=== PATIENT | male | born 1965 | race Caucasian/White ===

== ENCOUNTER 2018-06-08 02:09 | Emergency (ER) | payer OTHER ==
[~2018-06-08] VITALS: Ht 175.3 cm; Wt 78.0 kg
[2018-06-08 02:20] VITALS: BP 145/90
--- NOTE | 2018-06-08 02:20 | NUR ---
ED Nurse Note: Pt arrived ED from home, c/o left Elbow pain 11/24 without injury today. Pt is A/O X 4. Vital signs stable at this time, waiting for orders.
[2018-06-08] MEDS ORDERED: CRESTOR40 MG ORAL (02:21)
[2018-06-08] MEDS ORDERED: ENALAPRIL1.25 MG/ML IV (02:21)
[2018-06-08] MEDS ORDERED: PLAVIX75 MG ORAL (02:21)
[2018-06-08] MEDS ORDERED: CITALOPRAM HBR10 M1 ORAL (02:21)
[2018-06-08] MEDS ORDERED: HYDROcodone/Acetamin 5/325 tab ORAL ONE (02:30)
[2018-06-08] MEDS ORDERED: Bactrim-DS 1 tab ORAL ONE (02:30)
[2018-06-08] MEDS ORDERED: DOXYCYCLINE MO100 MG ORAL (02:33)
[2018-06-08] MEDS ORDERED: IBUPROFEN600 MG ORAL (02:33)
[2018-06-08] MEDS ORDERED: HYDROCODON-ACE1 EA15 ORAL (02:33)
--- NOTE | 2018-06-08 02:33 | Emergency Room Report ---
History of Present Illness General Chief Complaint: Upper Extremity Injury Source: Patient Present Illness [facility] This is a 52-year-old male with no past medical history. He presents with left elbow pain. No trauma. Onset tonight. Woke up around midnight with pain. There is some swelling and warmth to the left elbow area. Pain is 7 out of 10. Worse with movement. No injury. No fever chills. Allergies: Coded Allergies: No Known Allergies (Unverified , 06/08/18) Patient History Past Medical History: see triage record, old chart reviewed Past Surgical History: none Pertinent Family History: none Social History: Denies: smoking Immunizations: other Reviewed Nursing Documentation: PMH: Agreed; PSxH: Agreed Nursing Documentation-PMH Past Medical History: No History, Except For Hx Hypertension: Yes Review of Systems Eye: Denies: eye pain, blurred vision ENT: Denies: ear pain, nose congestion, throat swelling Respiratory: Denies: cough, shortness of breath Cardiovascular: Denies: chest pain, palpitations Gastrointestinal: Denies: abdominal pain, diarrhea, nausea, vomiting Musculoskeletal: Reports: joint pain; Denies: back pain Skin: Denies: rash Neurological: Denies: headache, numbness Endocrine: Denies: increased thirst, increased urine Hematologic/Lymphatic: Denies: easy bruising All Other Systems: negative except mentioned in HPI Physical Exam Vital Signs Date Time Temp Pulse Resp B/P (MAP) Pulse Ox O2 Delivery O2 Flow Rate FiO2 06/08/18 02:15 98.4 71 14 151/96 94 Room Air vitals with high blood pressure Sp02 EP Interpretation: reviewed, normal General Appearance: well appearing, no apparent distress, alert Head: normocephalic, atraumatic Eyes: bilateral eye PERRL, bilateral eye EOMI ENT: hearing grossly normal, normal pharynx Neck: full range of motion, supple, no meningismus Respiratory: chest non-tender, lungs clear, normal breath sounds Cardiovascular #1: regular rate, rhythm, no murmur Gastrointestinal: normal bowel sounds, non tender, no mass, no organomegaly, no bruit, non-distended Musculoskeletal: back normal, gait/station normal, normal range of motion, other - Left elbow: He has tenderness over the olecranon process. There is mild edema and warmth to the touch. Mild redness. No obvious break in the skin. Full range of motion of the elbow. No crepitance. Neurologic: alert, oriented x3 Psychiatric: mood/affect normal Skin: warm/dry Medical Decision Making Diagnostic Impression: Primary Impression: Olecranon bursitis of left elbow Additional Impression: Cellulitis of left elbow ER Course Patient with olecranon bursitis and possible overlying cellulitis. I see no evidence of necrotizing fasciitis or septic joint. There is no trauma. This could also be gout. Last Vital Signs Date Time Temp Pulse Resp B/P (MAP) Pulse Ox O2 Delivery O2 Flow Rate FiO2 06/08/18 02:15 98.4 71 14 151/96 94 Room Air Status: improved Disposition: HOME, SELF-CARE Condition: Stable Scripts Ibuprofen* (MOTRIN*) 600 Mg Tablet 600 MG ORAL THREE TIMES A DAY, #30 TAB 0 Refills Prov: Chaka Lisa MD 06/08/18 Hydrocodone/Acetaminophen 5-325* (HYDROCODONE/ACETAMINOPHEN 5-325*) 1 Each Tablet 1 TAB ORAL Q6H PRN for For Pain, #15 TAB 0 Refills Prov: Chaka Lisa MD 06/08/18 Doxycycline Monohydrate* (DOXYCYCLINE MONOHYDRATE*) 100 Mg Capsule 100 MG ORAL Q12H, #14 CAP 0 Refills Prov: Chaka Lisa MD 06/08/18 Additional Instructions: Follow-up with your DrMinal in 3-5 days of recheck. Keep area clean. Clean first with hydroperoxide and then apply antibiotic ointment. Return if worse. Chaka Lisa MD Jun 08, 2018 02:33
[2018-06-08 02:53] VITALS: BP 145/90
--- NOTE | 2018-06-08 02:53 | NUR ---
ER DISCHARGE NOTE: Patient is cleared to be discharged per Dr. Lisa. Pain meds given as ordered. Pt is aox4 on room air with stable vital signs. Pt was given dc and prescription instructions and was able to verbalize understanding. Pt's ID band removed. Pt is able to ambulate with steady gait and took all belongings.
== END 2018-06-08 02:53 | disposition home or self-care (01) ==
LOC: EMR 02:36
DX: M70.22 Olecranon bursitis, left elbow (principal); L03.114 Cellulitis of left upper limb; I10 Essential (primary) hypertension
CPT/HCPCS: 99282